=== PATIENT | female | born 1965 | race Caucasian/White ===

== ENCOUNTER → 2017-01-12 | Outpatient (CLI) | payer MEDICAID | END | disposition home or self-care (01) | LOC: ROC 01-06 11:42 | PROVIDERS: ATTEND Radiology Radiation Oncology | DX: D32.0 Benign neoplasm of cerebral meninges (principal); M19.90 Unspecified osteoarthritis, unspecified site; E78.00 Pure hypercholesterolemia, unspecified; I10 Essential (primary) hypertension; Z88.5 Allergy status to narcotic agent; Z90.49 Acquired absence of other specified parts of digestive tract; Z90.710 Acquired absence of both cervix and uterus; Z85.41 Personal history of malignant neoplasm of cervix uteri | CPT/HCPCS: 99214; G0463 ==

== ENCOUNTER → 2017-02-07 | Outpatient (CLI) | payer MEDICAID ==
[~2017-02-07] MED LIST: GADOBUTROL 10 MMOL/10 ML PFS ONE
== END | disposition home or self-care (01) ==
LOC: CFH 12:09
PROVIDERS: ATTEND Radiology Radiation Oncology
DX: D32.0 Benign neoplasm of cerebral meninges (principal); I10 Essential (primary) hypertension
CPT/HCPCS: 70553; 82565; A9585